=== PATIENT | female | born 1990 | race African-American/Black ===

== ENCOUNTER 2016-09-12 03:08 | Emergency (ER) | payer OTHER ==
[~2016-09-12] VITALS: Ht 167.6 cm; Wt 136.2 kg
[~2016-09-12 03:08] MED LIST: CLIN1CAP5 PO; IBUP800T23 PO; LEVO.075 PO; PERC5TAB12 PO
[2016-09-12 03:25] VITALS: BP 146/68; PULSE 82; RESP 18; TEMP 97.4; O2SAT 100
[2016-09-12] MEDS ORDERED: VITA100064 PO (03:39)
[2016-09-12 03:45] VITALS: O2SAT 98
[2016-09-12 03:51] VITALS: BP_SYST 117; BP_SYST 133; BP_DIAS 62; PULSE 75; RESP 18; O2SAT 98
--- NOTE | 2016-09-12 03:52 | PD ---
HPI Chief Complaint: Chest Pain Time Seen by Provider: 04:40 Travel History International Travel<30 days: No Contact w/Intl Traveler<30days: No Traveled to known affect area: No History of Present Illness HPI 25 year-old female presents to the emergency department for complaint of sharp chest pain radiating to her abdomen. Patient states pain at onset was 10 over 10 in intensity currently is 7/10 in intensity. Patient states symptoms began while she was at work and lasted approximately 20 minutes. Pain is nonradiating to the neck jaw back shoulder or arms. No shortness breath sweats no nausea no vomiting. Patient has had cholecystectomy in the past with similar symptoms and is status post gastric bypass. Patient's had no recent febrile illness. Patient denies any injury. Patient is unable to identify exacerbating or alleviating factors. Patient has taken no medications since onset of symptoms. Patient went to the emergency department [facility] but was told was very busy so decided to defer being seen at [facility] and presents now for further evaluation. Patient has no family history of premature onset cardiac disease. Patient is not diabetic hypertensive and denies dyslipidemia. Patient does not smoke cigarettes. No prior history of reflux or esophagitis. [facility] Past Medical History Narrative Medical Asthma morbid obesity gastric bypass cholecystectomy hypothyroidism no tobacco use family history negative for premature onset heart disease nursing notes reviewed Arthritis: No Asthma: Yes Autoimmune Disease: No Blood Disorders: Yes (Sickle cell trait) Anxiety: No Depression: No Heart Rhythm Problems: No Cancer: No Cardiovascular Problems: Yes High Cholesterol: No Chemotherapy: No Congestive Heart Failure: No COPD: No Cerebrovascular Accident: No Diabetes: No Diminished Hearing: No GERD: No Genitourinary: No Hiatal Hernia: No Immune Disorder: No Kidney Stones: No Musculoskeletal: No Neurologic: No Psychiatric: No Reproductive: No Migraines: No Radiation Therapy: No Renal Failure: No Seizures: No Sickle Cell Disease: No Sleep Apnea: No Thyroid Disease: Yes (Hypo) Ulcer: No Tetanus Vaccination: > 5 Years Influenza Vaccination: Yes ?: Unknown LMP: Three weeks ago : 0 Past Surgical History Abdominal Surgery: Yes (Gastric bypass) AICD: No Arteriovenous Shunt: No Cardiac Surgery: No Cholecystectomy: Yes Ear Surgery: No Endocrine Surgery: No Eye Surgery: No Genitourinary Surgery: No Gynecologic Surgery: No Insulin Pump: No Joint Replacement: No Oral Surgery: No Pacemaker: No Thoracic Surgery: No Social History Alcohol Use: No Tobacco Use: No Substance Use: No Allergies-Medications (Allergen,Severity, Reaction): Coded Allergies: Penicillin (Verified Allergy, Severe, "Breathing issue", 09/12/16) Reported Meds & Prescriptions Reported Meds & Active Scripts Active Protonix (Pantoprazole Sodium) 40 Mg Tab 40 Mg PO DAILY 14 Days Carafate Liq (Sucralfate) 1 Gm/10 Ml Susp 1 Gm PO QID 7 Days on empty stomach Reported Vitamin D (Cholecalciferol) 1,000 Unit Tab 5,000 Units PO WEEKLY Synthroid (Levothyroxine Sodium) 75 Mcg Tab 75 Mcg PO DAILY Review of Systems Except as stated in HPI: all other systems reviewed are Neg General / Constitutional: No: Fever, Chills Eyes: No: Visual changes HENT: No: Headaches, Congestion Cardiovascular: Positive: Chest Pain or Discomfort (sharp stabbing), No: Diaphoresis Respiratory: No: Shortness of Breath Gastrointestinal: Positive: Abdominal Pain (epigastric), No: Nausea, Vomiting Genitourinary: No: Dysuria, Flank Pain Musculoskeletal: No: Myalgias, Arthralgias Skin: No Rash Neurologic: No: Weakness Psychiatric: No: Anxiety Hematologic/Lymphatic: No: Easy Bruising Physical Exam Narrative GENERAL: Well-developed well-nourished obese female in no acute distress no respiratory distress SKIN: Warm and dry. HEAD: Normocephalic. EYES: No scleral icterus. No injection or drainage. NECK: Supple, trachea midline. No JVD or lymphadenopathy. CARDIOVASCULAR: Regular rate and rhythm without murmurs, gallops, or rubs. RESPIRATORY: Breath sounds equal bilaterally. No accessory muscle use. GASTROINTESTINAL: Abdomen soft, non-tender, nondistended. MUSCULOSKELETAL: No cyanosis, or edema. BACK: Nontender without obvious deformity. No CVA tenderness. Data Data Last Documented VS Vital Signs Date Time Temp Pulse Resp B/P Pulse Ox O2 Delivery O2 Flow Rate FiO2 09/12/16 05:17 78 18 112/69 98 09/12/16 04:40 Room Air 09/12/16 03:25 97.4 Orders Electrocardiogram (09/12/16 03:52) Ckmb (Isoenzyme) Profile (09/12/16 03:52) Complete Blood Count With Diff (09/12/16 03:52) Comprehensive Metabolic Panel (09/12/16 03:52) Magnesium (Mg) (09/12/16 03:52) Prothrombin Time / Inr (Pt) (09/12/16 03:52) Act Partial Throm Time (Ptt) (09/12/16 03:52) Troponin I (09/12/16 03:52) Lipase (09/12/16 03:52) Chest, Single Ap (09/12/16 03:52) Ecg Monitoring (09/12/16 03:52) Bilateral Bp Monitoring (09/12/16 03:52) Iv Access Insert/Monitor (09/12/16 03:52) Oximetry (09/12/16 03:52) Oxygen Administration (09/12/16 03:52) Sodium Chloride 0.9% Flush (Ns Flush) (09/12/16 04:00) Ketorolac Inj (Toradol Inj) (09/12/16 04:00) Pantoprazole Inj (Protonix Inj) (09/12/16 04:00) Ed Urine Pregnancytest Poc (09/12/16 03:52) Urinalysis - C+S If Indicated (09/12/16 03:52) CKMB (09/12/16 03:30) CKMB% (09/12/16 03:30) Labs Laboratory Tests Test 09/12/16 09/12/16 03:30 04:10 White Blood Count 5.1 TH/MM3 Red Blood Count 4.39 MIL/MM3 Hemoglobin 10.8 GM/DL Hematocrit 33.8 % Mean Corpuscular Volume 77.0 FL Mean Corpuscular Hemoglobin 24.6 PG Mean Corpuscular Hemoglobin 32.0 % Concent Red Cell Distribution Width 15.9 % Platelet Count 324 TH/MM3 Mean Platelet Volume 8.5 FL Neutrophils (%) (Auto) 48.8 % Lymphocytes (%) (Auto) 36.7 % Monocytes (%) (Auto) 10.3 % Eosinophils (%) (Auto) 3.1 % Basophils (%) (Auto) 1.1 % Neutrophils # (Auto) 2.4 TH/MM3 Lymphocytes # (Auto) 1.9 TH/MM3 Monocytes # (Auto) 0.5 TH/MM3 Eosinophils # (Auto) 0.2 TH/MM3 Basophils # (Auto) 0.1 TH/MM3 CBC Comment AUTO DIFF Differential Comment AUTO DIFF CONFIRMED Platelet Estimate NORMAL Platelet Morphology Comment NORMAL Prothrombin Time 10.7 SEC Prothromb Time International 1.0 RATIO Ratio Activated Partial 25.4 SEC Thromboplast Time Sodium Level 139 MEQ/L Potassium Level 4.1 MEQ/L Chloride Level 104 MEQ/L Carbon Dioxide Level 26.4 MEQ/L Anion Gap 9 MEQ/L Blood Urea Nitrogen 14 MG/DL Creatinine 0.72 MG/DL Estimat Glomerular Filtration 121 ML/MIN Rate Random Glucose 77 MG/DL Calcium Level 8.5 MG/DL Magnesium Level 2.3 MG/DL Total Bilirubin 1.1 MG/DL Aspartate Amino Transf 23 U/L (AST/SGOT) Alanine Aminotransferase 19 U/L (ALT/SGPT) Alkaline Phosphatase 107 U/L Total Creatine Kinase 283 U/L Creatine Kinase MB 1.7 NG/ML Creatine Kinase MB % 0.6 % Troponin I LESS THAN 0.02 NG/ML Total Protein 7.5 GM/DL Albumin 3.6 GM/DL Lipase 130 U/L Urine Color YELLOW Urine Turbidity CLEAR Urine pH 5.5 Urine Specific [place] 1.023 Urine Protein NEG mg/dL Urine Glucose (UA) NEG mg/dL Urine Ketones NEG mg/dL Urine Occult Blood NEG Urine Nitrite NEG Urine Bilirubin NEG Urine Leukocyte Esterase NEG Urine RBC 0-3 /hpf Urine Squamous Epithelial 0-5 /hpf Cells Urine Amorphous Sediment SMALL Urine Mucus MOD /lpf Microscopic Urinalysis Comment CULT NOT INDICATED MDM Medical Decision Making Medical Screen Exam Complete: Yes Emergency Medical Condition: Yes Medical Record Reviewed: Yes Interpretation(s) EKG: Sinus rhythm rate [address] elevation or injury pattern change or ectopy noted Last Impressions Chest X-Ray 09/12/16 0352 Signed Impressions: Service Date/Time: Monday, September 12, 2016 04:28 - CONCLUSION: No acute disease. Scott Soto MD trop: less than 0.02, not elevated ck: 283, elevated; mb%: 0.6% not elevated Differential Diagnosis Chest pain, atypical chest pain, esophageal spasm, choledocholithiasis, pancreatitis, peptic ulcer disease, ACS, SBO, colitis Narrative Course Patient placed on monitor IV access obtained specimens collected and sent for resulting EKG performed which shows sinus rhythm without any acute ST elevation or injury pattern change or ectopy noted At 4:50 AM patient states symptoms have resolved patient is aware of EKG findings chest x-ray findings of no acute process and lab values in normal range. Patient is clinically improved and stable for outpatient management. Suspect patient possibly has esophageal spasm versus gastritis/early peptic ulcer disease. We'll recommend patient start Protonix will also give prescription for Carafate. Patient is encouraged to follow-up with her primary care provider and may require referral to gastroenterology for endoscopy. Patient is otherwise stable at this time in stable for outpatient management. Diagnosis Primary Impression: Atypical chest pain Referrals: Primary Care Physician call for appointment Patient Instructions: General Instructions Additional Instructions: Follow-up with your primary care provider Return to the emergency department for any concerns or change in condition Recommend use of Prilosec OTC or Protonix as per prescription Recommend use of Carafate per prescription directions Med/Other Pt SpecificInfo: Prescription(s) given Scripts Pantoprazole (Protonix)40 Mg Tab40 Mg PO DAILY 14 Days Ref 0 Prov:Funmi Sadler MD 09/12/16 Sucralfate Liq (Carafate Liq)1 Gm/10 Ml Susp1 Gm PO QID 7 Days Ref 0 on empty stomach Prov:Funmi Sadler MD 09/12/16 Disposition: 01 DISCHARGE HOME Condition: Stable Funmi Sadler MD Sep 12, 2016 03:52
[2016-09-12] MEDS ORDERED: KETOROLAC TROMETHAMINE 30 MG/ML (IVP) VIAL IV PUSH ONE (04:00)
[2016-09-12] MEDS ORDERED: PANTOPRAZOLE SODIUM 40 MG VIAL IV PUSH ONE (04:00)
[2016-09-12] MEDS ORDERED: SODIUM CHLORIDE 0.9% FLUSH 5 ML FLUSH IVF PRN (04:00)
[2016-09-12 04:05] LABS: AUTOMATED NEUTROPHIL # 2.4 TH/MM3 (1.8-7.7); BASOPHIL # 0.1 TH/MM3 (0-0.2); BASOPHIL % 1.1 % (0.0-2.0); EOSINOPHIL # 0.2 TH/MM3 (0-0.4); EOSINOPHIL % 3.1 % (0.0-4.0); HEMATOCRIT 33.8 % (35.0-46.0); LYMPH % 36.7 % (9.0-44.0); LYMPHOCYTE # 1.9 TH/MM3 (1.0-4.8); MEAN CORPUSCULAR HEMOGLOBIN 24.6 PG (27.0-34.0); MONO % 10.3 % (0.0-8.0); NEUT % 48.8 % (16.0-70.0); PLATELET COUNT 324 TH/MM3 (150-450); RED BLOOD COUNT 4.39 MIL/MM3 (4.00-5.30); RED CELL DISTRIBUTION WIDTH 15.9 % (11.6-17.2); WHITE BLOOD COUNT 5.1 TH/MM3 (4.0-11.0)
[2016-09-12 04:18] LABS: CHLORIDE 104 MEQ/L (98-107); POTASSIUM 4.1 MEQ/L (3.5-5.1); SODIUM (NA) 139 MEQ/L (136-145)
[2016-09-12 04:20] LABS: APTT (PATIENT) 25.4 SEC (24.3-30.1); PROTHROMBIN TIME - PATIENT 10.7 SEC (9.8-11.6)
[2016-09-12 04:21] LABS: ANION GAP 9 MEQ/L (5-15); BICARBONATE 26.4 MEQ/L (21.0-32.0); MAGNESIUM 2.3 MG/DL (1.5-2.5)
[2016-09-12 04:21] LABS: BLOOD, URINE NEG (NEG); GLUCOSE,URINE NEG (NEG); KETONE, URINE NEG (NEG); NITRITE,URINE NEG (NEG); PH, URINE 5.5 (5.0-8.5)
[2016-09-12 04:22] LABS: BLOOD UREA NITROGEN 14 MG/DL (7-18)
[2016-09-12 04:24] LABS: ALT (GPT) 19 U/L (10-53); AST (GOT) 23 U/L (15-37); GLOMERULAR FILTRATION RATE 121 ML/MIN (>89)
[2016-09-12 04:26] LABS: HEMO FLAGS AUTO DIFF; TOTAL BILIRUBIN ADULT 1.1 MG/DL (0.2-1.0)
[2016-09-12 04:27] LABS: ALKALINE PHOSPHATASE 107 U/L (45-117); CREATINE KINASE 283 U/L (26-192); PLATELET ESTIMATE SMEAR NORMAL (NORMAL); PLATELET MORPHOLOGY NORMAL (NORMAL); SCAN/DIFF AUTO DIFF CONFIRMED
--- NOTE | 2016-09-12 04:35 | RADHPO ---
EXAM DATE/TIME: 09/12/2016 04:28 [place] COMPARISON: No previous studies available for comparison. INDICATIONS : Chest pain. MEDICAL HISTORY : Pancreatitis. SURGICAL HISTORY : Cholecystectomy. Gastric bypass. ENCOUNTER: Initial ACUITY: 1 day PAIN SCORE: 7/10 LOCATION: Bilateral chest FINDINGS: A single view of the chest demonstrates the lungs to be symmetrically aerated without evidence of mas s, infiltrate or effusion. The cardiomediastinal contours are unremarkable. Osseous structures are intact. CONCLUSION: No acute disease. Scott Soto MD on September 12, 2016 at 4:34 Board Certified Radiologist. This report was verified electronically.
[2016-09-12 04:36] LABS: MUCUS URINE MOD /lpf (OCC); URINE COLOR YELLOW (YELLW/STRAW)
[2016-09-12 04:37] LABS: RBC, URINE 0-3 /hpf (0-3); SQUAMOUS EPITHELIAL CELL URINE 0-5 /hpf (0-5)
[2016-09-12 04:38] LABS: COMMENT (UR) CULT NOT INDICATED; CULTURE IF INDICATED CULT NOT INDICATED
[2016-09-12 04:39] LABS: CKMB 1.7 NG/ML (0.5-3.6)
[2016-09-12 04:40] VITALS: BP 124/63; PULSE 74; RESP 18; O2SAT 98
[2016-09-12] MEDS ORDERED: CARA1SUS3 PO (04:53)
[2016-09-12] MEDS ORDERED: PROT40TA PO (04:53)
[2016-09-12 05:17] VITALS: BP 112/69
--- NOTE | 2016-09-12 21:18 | EKG ---
Date Performed: 09/12/2016 Time Performed: 03:24:52 PTAGE: 25 years EKG: Sinus arrhythmia. Poor R wave progression Borderline ECG PREVIOUS TRACING : 03/06/2016 17.58 DOCTOR: Theo Abebe Interpretating Date/Time 09/12/2016 21:16:08
== END 2016-09-12 05:22 | disposition home or self-care (01) ==
LOC: PHED 03:08
DX: R07.89 Other chest pain (principal); R10.9 Unspecified abdominal pain; R94.31 Abnormal electrocardiogram [ECG] [EKG]; E03.9 Hypothyroidism, unspecified; E66.01 Morbid (severe) obesity due to excess calories; Z98.84 Bariatric surgery status; Z87.09 Personal history of other diseases of the respiratory system; Z86.2 Personal history of diseases of the blood and blood-forming organs and certain disorders involving the immune mechanism; Z86.79 Personal history of other diseases of the circulatory system
CPT/HCPCS: 71010; 80053; 81001; 82550; 82552; 83690; 83735; 84484; 84703; 85025; 85610; 85730; 93005; 96374; 96375; 99285; C9113; J1885

== ENCOUNTER 2017-03-04 07:18 | Emergency (ER) | payer OTHER ==
[~2017-03-04] VITALS: Ht 167.6 cm; Wt 140.0 kg
[~2017-03-04 07:18] MED LIST changes: +CARA1SUS3 PO; -CLIN1CAP5 PO; -IBUP800T23 PO; -PERC5TAB12 PO; +PROT40TA PO; +VITA100064 PO
[2017-03-04 07:21] VITALS: BP 133/81; PULSE 72; RESP 16; TEMP 97.8; O2SAT 100
--- NOTE | 2017-03-04 08:24 | PD ---
HPI Chief Complaint: Abdominal Pain Time Seen by Provider: 07:40 Travel History International Travel<30 days: No Contact w/Intl Traveler<30days: No Traveled to known affect area: No History of Present Illness HPI The patient was seen and examined in the presence of the nurse. This patient complains of left upper quadrant pain. She's had spells of this for 1 full year. She has history of gastric bypass. After the surgery she started having very small meals and did okay but or recently she's been eating large meals. Her abdominal pain always starts after a meal last about 20 minutes and resolves. Severity is mild to moderate. No alleviating factors. She has no vomiting or diarrhea or fever. She has no gallbladder PFSH Past Medical History Arthritis: No Asthma: Yes Autoimmune Disease: No Blood Disorders: Yes (Sickle cell trait) Anxiety: No Depression: No Heart Rhythm Problems: No Cancer: No Cardiovascular Problems: Yes High Cholesterol: No Chemotherapy: No Congestive Heart Failure: No COPD: No Cerebrovascular Accident: No Diabetes: No Diminished Hearing: No GERD: No Genitourinary: No Hiatal Hernia: No Immune Disorder: No Kidney Stones: No Musculoskeletal: No Neurologic: No Psychiatric: No Reproductive: No Migraines: No Radiation Therapy: No Renal Failure: No Seizures: No Sickle Cell Disease: No Sleep Apnea: No Thyroid Disease: Yes (Hypo) Ulcer: No Influenza Vaccination: Yes ?: Not LMP: NOW : 0 Past Surgical History Abdominal Surgery: Yes (Gastric bypass) AICD: No Arteriovenous Shunt: No Cardiac Surgery: No Cholecystectomy: Yes Ear Surgery: No Endocrine Surgery: No Eye Surgery: No Genitourinary Surgery: No Gynecologic Surgery: No Insulin Pump: No Joint Replacement: No Oral Surgery: No Pacemaker: No Thoracic Surgery: No Social History Alcohol Use: Yes (SOCIALLY) Tobacco Use: No Substance Use: No Allergies-Medications (Allergen,Severity, Reaction): Coded Allergies: Penicillin (Verified Allergy, Severe, "Breathing issue", 03/04/17) Reported Meds & Prescriptions Reported Meds & Active Scripts Active Reported Synthroid (Levothyroxine Sodium) 75 Mcg Tab 75 Mcg PO DAILY Review of Systems General / Constitutional: No: Fever HENT: No: Headaches Cardiovascular: No: Chest Pain or Discomfort Physical Exam Narrative GASTROINTESTINAL: Abdomen soft, non-tender, nondistended. Positive bowel sounds. No hepato-splenomegaly, or palpable masses. No guarding. SKIN: Focused skin assessment reveals no rash or ulcers. Skin is warm and dry. Palpation shows no induration or nodules. Psych: Normal mood and affect. Normal insight and judgment. Data Data Last Documented VS Vital Signs Date Time Temp Pulse Resp B/P Pulse Ox O2 Delivery O2 Flow Rate FiO2 03/04/17 07:21 97.8 72 16 133/81 100 MDM Medical Decision Making Medical Screen Exam Complete: Yes Emergency Medical Condition: Yes Medical Record Reviewed: Yes Differential Diagnosis Peptic ulcer disease, overeating, ileus Narrative Course I have reviewed the patient's electronic medical record. Patient was seen here for chest pain 6 months ago had negative workup Patient's abdomen is soft and benign and nontender This is a recurrent problem for a year Think she should have only small meals given her stomach is now small pouch Sounds like she was overheating and causing her to have distention/pain which resolves on its own when food move through Recommend GI follow-up Diagnosis Primary Impression: Abdominal pain Qualified Code: R10.12 - Left upper quadrant pain Additional Instructions: The patient was advised to follow up with their physician and return if they worsen. Eat only small meals Med/Other Pt SpecificInfo: Other Disposition: 01 DISCHARGE HOME Condition: Stable Job Vazquez MD Mar 04, 2017 08:24
[2017-03-04 08:29] VITALS: BP 128/80; PULSE 74; RESP 16; O2SAT 100
== END 2017-03-04 08:30 | disposition home or self-care (01) ==
LOC: PHED 07:18
DX: R10.12 Left upper quadrant pain (principal); E07.9 Disorder of thyroid, unspecified; D57.3 Sickle-cell trait; Z98.84 Bariatric surgery status; Z87.09 Personal history of other diseases of the respiratory system; Z86.79 Personal history of other diseases of the circulatory system
CPT/HCPCS: 99281

== ENCOUNTER → 2017-05-02 | Day surgery (SDC) | payer OTHER ==
[~2017-05-02] MED LIST changes: -CARA1SUS3 PO; +LACTATED RINGER'S 1000 ML INJ 1,000 ML IV ONE; +PROPOFOL 500 MG/50 ML BTL IV ONE; -PROT40TA PO; -VITA100064 PO
--- NOTE | 2017-05-02 10:16 | GIPROC ---
[facility] [address] [place], [address] EGD PROCEDURE REPORT EXAM DATE: 05/02/2017 PATIENT NAME: Andree Hand MR #: [id number] BIRTHDATE: 1990 ATTENDING: Sumanth Kelly MD ORDER #: [id number] MOTHER SUPERIOR: Lucina Zee RN STATUS: outpatient INDICATIONS: The patient is a 26 yr old female here for an EGD due to anemia and epigastric abdominal pain PROCEDURE PERFORMED: EGD w/ biopsy MEDICATIONS: None, Per Anesthesia, None, and Per Anesthesia. TOPICAL ANESTHETIC: CONSENT: The patient understands the risks and benefits of the procedure and understands that these risks include, but are not limited to: sedation, allergic reaction, infection, perforation and/or bleeding. Alternative means of evaluation and treatment include, among others: physical exam, x-rays, and/or surgical intervention. The patient elects to proceed with this endoscopic procedure. medical equipment was checked for proper function. Hand hygiene and appropriate measures for infection prevention was taken. After the risks, benefits and alternatives of the procedure were thoroughly explained, Informed consent was verified, confirmed and timeout was successfully executed by the treatment team. The patient was anesthetized with topical anesthesia and the EC-[id number] ([id number]) endoscope was introduced through the mouth and advanced to the second portion of the duodenum. Retroflexed views revealed no abnormalities The gastroscope was then slowly withdrawn and removed. STOMACH: A gastric bypass was found. A soft small nodule was located in the gastric body. Multiple biopsies were performed. The endoscopy was otherwise normal. ADVERSE EVENTS: There were no complications. IMPRESSIONS: 1. Gastric bypass was found 2. A small nodule was located in the gastric body; multiple biopsies were performed 3. Normal endoscopy otherwise 4. Retroflexed views revealed no abnormalities RECOMMENDATIONS: 1. Await biopsy results. Biopsy results will not be ready for 7-10 days. If you don't hear from us in two weeks, call our office for biopsy results. 2. Follow-up: GI clinic 4 week(s) PATIENT CONDITION: stable DISPOSITION: Home REPEAT EXAM: Sumanth Kelly MD eSigned: Sumanth Kelly MD 05/02/2017 10:16 AM cc: [facility]
--- NOTE | 2017-05-02 10:19 | GIPROC ---
[facility] [address], [address] COLONOSCOPY PROCEDURE REPORT EXAM DATE: 05/02/2017 PATIENT NAME: Andree Hand MR #: [id number] BIRTHDATE: 1990 ENDOSCOPIST: Sumanth Kelly MD ORDER #: [id number] CRAFT DEMONSTRATOR: Lucina Zee RN STATUS: outpatient INDICATIONS: The patient is a 26 yr old female here for a colonoscopy due to abdominal pain and anemia, non-specific PROCEDURE PERFORMED: Colonoscopy, screening MEDICATIONS: None, Per Anesthesia, None, and Per Anesthesia. PREP QUALITY: good ESTIMATED BLOOD LOSS: None CONSENT: The patient understands the risks and benefits of the procedure and understands that these risks include, but are not limited to: sedation, allergic reaction, infection, perforation and/or bleeding. Alternative means of evaluation and treatment include, among others: physical exam, x-rays, and/or surgical intervention. The patient elects to proceed with this endoscopic procedure. medical equipment was checked for proper function. Hand hygiene and appropriate measures for infection prevention was taken. After the risks, benefits and alternatives of the procedure were thoroughly explained, Informed consent was verified, confirmed and timeout was successfully executed by the treatment team. A digital exam revealed no abnormalities of the rectum The EC-[id number] ([id number] endoscope was introduced through the anus and advanced to the cecum, which was identified by both the appendix and ileocecal valve. The instrument was then slowly withdrawn as the colon was fully examined. COLON FINDINGS: The colonic mucosa appeared normal. Retroflexed views revealed no abnormalities The scope was then completely withdrawn from the patient and the procedure terminated. PROCEDURE WITHDRAWAL TIME:7.9minutes ADVERSE EVENTS: There were no complications. IMPRESSIONS: 1. The colonic mucosa appeared normal 2. Retroflexed views revealed no abnormalities 3. Revealed no abnormalities of the rectum RECOMMENDATIONS: 1. High fiber diet 2. Follow-up: GI Clinic 4 week(s) RECALL: Return 10 years Colonoscopy Sumanth Kelly MD eSigned: Sumanth Kelly MD 05/02/2017 10:18 AM cc: Elisa Arshad M.D and Broderick Najera [facility] Yasmeen
== END | disposition home or self-care (01) ==
LOC: ESDC 07:49
PROVIDERS: ATTEND Internal Medicine Gastroenterology
DX: R10.9 Unspecified abdominal pain (principal); D64.9 Anemia, unspecified; K31.89 Other diseases of stomach and duodenum
CPT/HCPCS: 00740; 00810; 43239; 45378; 88305; J3010; J7120